=== PATIENT | male | born 1995 | race Caucasian/White ===

== ENCOUNTER 2017-04-24 18:11 | Emergency (ER) | payer OTHER ==
[~2017-04-24] VITALS: Ht 177.8 cm; Wt 84.1 kg
[2017-04-24 18:13] VITALS: BP 133/79; PULSE 120; TEMP 100.2
[2017-04-24 19:01] LABS: INFLUENZA A NEGATIVE; INFLUENZA B NEGATIVE
== END 2017-04-24 19:20 | disposition home or self-care (01) ==
LOC: COL.ER 18:11
PROVIDERS: Nurse Practitioner
DX: J11.1 Influenza due to unidentified influenza virus with other respiratory manifestations (principal); K21.9 Gastro-esophageal reflux disease without esophagitis